=== PATIENT | female | born 1990 | race Two or more races ===

== ENCOUNTER 2017-01-22 15:31 | Emergency (ER) | payer MEDICAID ==
[~2017-01-22] VITALS: Ht 157.5 cm; Wt 66.0 kg
[2017-01-22 15:51] VITALS: BP 114/69
[2017-01-22 16:40] LABS: CLARITY URINE TURBID (CLEAR); COLOR URINE YELLOW (YELLOW); GLUCOSE URINE NEGATIVE (NEGATIVE); KETONES URINE NEGATIVE (NEGATIVE); LEUKOCYTE ESTERASE URINE 2+ (NEGATIVE); NITRITE URINE NEGATIVE (NEGATIVE); OCCULT BLOOD URINE TRACE (NEGATIVE); PH URINE 7.5 (4.5-8.0); PROTEIN URINE NEGATIVE (NEGATIVE); SPECIFIC GRAVITY URINE 1.024 (1.005-1.030)
== END 2017-01-22 17:29 | disposition home or self-care (01) ==
LOC: ER 15:31
DX: N39.0 Urinary tract infection, site not specified (principal)
CPT/HCPCS: 81001; 81025; 87086; 99284